=== PATIENT | male | born 1965 | race Caucasian/White ===

== ENCOUNTER 2024-07-11 17:40 | Emergency (ER) | payer BC ==
[2024-07-11] MEDS: Bacitracin Oint 1 GM U/D Packet TOP ONE (19:05)
== END 2024-07-11 19:30 | disposition home or self-care (01) ==
LOC: JP.ED 17:40
DX: T25.221A Burn of second degree of right foot, initial encounter (principal); T25.111A Burn of first degree of right ankle, initial encounter; T24.111A Burn of first degree of right thigh, initial encounter; Z79.899 Other long term (current) drug therapy; F17.210 Nicotine dependence, cigarettes, uncomplicated; X12.XXXA Contact with other hot fluids, initial encounter
CPT/HCPCS: 99283